=== PATIENT | female | born 1960 | race Hispanic/Latino ===

== ENCOUNTER 2019-01-15 09:35 | Outpatient (CLI) | payer OTHER ==
--- NOTE | 2019-01-15 13:23 | MMO ---
"PRELIMINARY REPORT" Screening mammography HISTORY: Digital screen mammography annual exam Bilateral 20: Oblique mediolateral digital screen mammograms obtained. Images were also evaluated usi ng millimeters aided detection. Comparison made to previous exam from 01/13/2018. No definite evidence of masses or lesions seen. No evidence of microcalcifications or architectural d istortion seen. IMPRESSION: BI-RADS Category 1-negative exam.
--- NOTE | 2019-01-16 08:14 | MMO ---
Bilateral MAMMO Bilat Screen [facility]. CLINICAL HISTORY: Patient is 58 years old and is seen for screening. The patient has no family history of breast cancer. The patient has no personal history of cancer. VIEWS: The views performed were: bilateral craniocaudal and bilateral mediolateral oblique. FILMS COMPARED: The present examination has been compared to prior imaging studies performed at [facility] on 10/26/2012, 03/14/2014, 03/17/2015 and 07/20/2016. This study has been interpreted with the assistance of computer-aided detection. MAMMOGRAM FINDINGS: The breasts are almost entirely fat. There are no suspicious masses, suspicious calcifications, or new areas of architectural distortion. IMPRESSION: THERE IS NO MAMMOGRAPHIC EVIDENCE OF MALIGNANCY. A ROUTINE FOLLOW-UP MAMMOGRAM IN 1 YEAR IS RECOMMENDED. ACR BI-RADS Category 1 - Negative MAMMOGRAPHY NOTE: 1. A negative mammogram report should not delay a biopsy if a dominant of clinically suspicious mass is present. 2. Approximately 10% to 15% of breast cancers are not detected by mammography. 3. Adenosis and dense breasts may obscure an underlying neoplasm.
== END 2019-01-15 09:36 | disposition home or self-care (01) ==
LOC: SCSMAMMO 09:35
PROVIDERS: ATTEND Advanced Practice Midwife
DX: Z12.31 Encounter for screening mammogram for malignant neoplasm of breast (principal)
CPT/HCPCS: 77067

== ENCOUNTER 2020-04-24 12:41 | Outpatient (CLI) | payer BC ==
--- NOTE | 2020-04-24 14:02 | RAD ---
XR Knee Lt 4 View STANDARD HISTORY: Left knee pain FINDINGS: No fracture or dislocation is identified. There are degenerative changes, most prominent in the media l tibiofemoral compartment.
--- NOTE | 2020-04-24 14:02 | RAD ---
XR Knee Rt 4 View STANDARD HISTORY: Right knee pain FINDINGS: No fracture or dislocation is identified. There are degenerative changes in the medial tibiofemoral c ompartment.
--- NOTE | 2020-04-24 14:24 | BD ---
Exam: DEXA Bone Density 04/24/20 INDICATIONS: Postmenopausal screening. Lumbar Spine: BMD (g/cm2) T-SCORE L1 1.010 0.2 L2 0.913 -1.0 L3 0.890 -1.8 L4 0.947 -1.0 L1-L4 0.939 -1.0 Femoral Neck: 0.772 -0.7 Total Femur: 0.980 0.3 Impression: Bone mineral density in the lumbar spine and femoral neck are both within normal range. POS: AGW
--- NOTE | 2020-04-24 16:35 | MMO ---
Bilateral MAMMO Bilat Screen [facility]. CLINICAL HISTORY: Patient is 59 years old and is seen for screening. The patient has no family history of breast cancer. The patient has no personal history of cancer. VIEWS: The views performed were: bilateral craniocaudal with tomosynthesis and bilateral mediolateral oblique with tomosynthesis. FILMS COMPARED: The present examination has been compared to prior imaging studies performed at [facility] on 01/15/2019, and at [facility] on 03/14/2014, 03/17/2015 and 07/20/2016. This study has been interpreted with the assistance of computer-aided detection. MAMMOGRAM FINDINGS: The breasts are almost entirely fat. There are no suspicious masses, suspicious calcifications, or new areas of architectural distortion. IMPRESSION: THERE IS NO MAMMOGRAPHIC EVIDENCE OF MALIGNANCY. A ROUTINE FOLLOW-UP MAMMOGRAM IN 1 YEAR IS RECOMMENDED. THE RESULTS OF THIS EXAM WERE SENT TO THE PATIENT. ACR BI-RADS Category 1 - Negative MAMMOGRAPHY NOTE: 1. A negative mammogram report should not delay a biopsy if a dominant of clinically suspicious mass is present. 2. Approximately 10% to 15% of breast cancers are not detected by mammography. 3. Adenosis and dense breasts may obscure an underlying neoplasm. Reported by: SHARMAINE CARVER MD Electonically Signed: [id number]
== END 2020-04-24 12:42 | disposition home or self-care (01) ==
LOC: BICRAD 12:41
PROVIDERS: ATTEND Family Medicine
DX: Z12.31 Encounter for screening mammogram for malignant neoplasm of breast (principal); Z13.820 Encounter for screening for osteoporosis; M25.561 Pain in right knee; M25.562 Pain in left knee; M17.0 Bilateral primary osteoarthritis of knee
CPT/HCPCS: 77063; 77067; 77080

== ENCOUNTER 2024-07-16 15:58 | Outpatient (CLI) | payer OTHER | END 2024-07-16 15:59 | disposition home or self-care (01) | LOC: BICRAD 15:58 | PROVIDERS: ATTEND Family Medicine | DX: M54.50 Low back pain, unspecified (principal); M47.816 Spondylosis without myelopathy or radiculopathy, lumbar region; M47.814 Spondylosis without myelopathy or radiculopathy, thoracic region | CPT/HCPCS: 72100 ==